=== PATIENT | female | born 1970 | race Caucasian/White ===

== ENCOUNTER 2019-01-07 10:34 | Emergency (ER) | payer OTHER ==
[2019-01-07 10:39] VITALS: BP 147/75; PULSE 78; TEMP 98.1; BMI 23.8
[2019-01-07] MEDS ORDERED: IBUPROFEN 600 MG TABLET (FP) PO ONE ×2 (11:55→12:27)
--- NOTE | 2019-01-07 12:23 | PDOC ---
History of Present Illness - General History Source: Patient Exam Limitations: No Limitations <Irais Han - Last Filed: 01/07/19 12:16> <Sophie Nevarez - Last Filed: 01/08/19 07:17> - General Chief Complaint: Pain Stated Complaint: PAIN Time Seen by Provider: 01/07/19 10:59 Past History - Suicide/Smoking/Psychosocial Hx Smoking History: Never smoked Hx Alcohol Use: No Drug/Substance Use Hx: No <Irais Han - Last Filed: 01/07/19 12:16> <Sophie Nevarez - Last Filed: 01/08/19 07:17> - Past Medical History Allergies/Adverse Reactions: Allergies Allergy/AdvReac Type Severity Reaction Status Date / Time No Known Allergies Allergy Verified 01/07/19 10:40 *Physical Exam - Vital Signs Last Vital Signs Temp Pulse Resp BP Pulse Ox 98.1 F 78 18 147/75 99 01/07/19 10:35 01/07/19 10:35 01/07/19 10:35 01/07/19 10:35 01/07/19 10:35 - Physical Exam General Appearance: No: Nourished Respiratory/Chest: positive: Lungs Clear, Normal Breath Sounds, Other (no masses or lumps palpable along R breast, no nipple inversion, no nipple discharge, no swelling or redness of breast). negative: Respiratory Distress Cardiovascular: positive: Regular Rhythm, Regular Rate, S1, S2. negative: Murmur Gastrointestinal/Abdominal: positive: Normal Bowel Sounds, Soft. negative: Tender, Distended, Guarding, Rebound Integumentary: positive: Normal Color Neurologic: positive: Alert, Normal Mood/Affect <Irais Han - Last Filed: 01/07/19 12:16> - Vital Signs Last Vital Signs Temp Pulse Resp BP Pulse Ox 98.1 F 78 18 147/75 99 01/07/19 10:35 01/07/19 10:35 01/07/19 10:35 01/07/19 10:35 01/07/19 10:35 <Sophie Nevarez - Last Filed: 01/08/19 07:17> ED Treatment Course - Medications Given in the ED: ED Medications Discontinued Medications Generic Name Dose Route Start Last Admin Trade Name Freq PRN Reason Stop Dose Admin Ibuprofen 600 mg 04/27/19 11:55 01/07/19 12:31 Motrin - PO 01/07/19 11:56 600 mg ONCE ONE Administration <Sophie Nevarez - Last Filed: 01/08/19 07:17> Medical Decision Making - Medical Decision Making 48 y/o F with no sig pmh presents with R breast pain from yesterday (along LOQ) . Denies fever, sob, cp, abd pain, n/v, nipple discharge, breast swelling, changes in color of breast. Had mammogram and ultrasound of breast last year which was normal. LNMP was 12/09. Is due for next menstrual cycle soon. Did not take anything for pain at home PE unremarkable with no concern for breast abscess, masses, or signs of breast cancer Could possibly be fibrocysts Given Motrin Stable for dc 01/07/19 12:17 <Irais Han - Last Filed: 01/07/19 12:16> *DC/Admit/Observation/Transfer - Discharge Dispostion Decision to Admit order: No <Irais Han - Last Filed: 01/07/19 12:16> - Attestations Physician Attestion: I reviewed the case with the mid-level practitioner and agree with the mid- level practitioner's assessment, diagnosis and disposition. <Sophie Nevarez - Last Filed: 01/08/19 07:17> Diagnosis at time of Disposition: Breast pain - Discharge Dispostion Disposition: HOME Condition at time of disposition: Stable - Patient Instructions Printed Discharge Instructions: DI for Breast Pain (Mastalgia) Additional Instructions: Thank you for choosing [facility]. It was a pleasure taking care of you. Likely your pain could be from fibrocysts in your breast. The pain usually resolves once your menstrual cycle starts Recommend follow-up with your medical office administrator. You may take Motrin 600 mg every 6 hours by mouth as needed for mild to moderate pain. Take Motrin with food. Return to the Emergency Department if your symptoms worsen or persist, you have fever, redness, swelling, nipple discharge, chest pain, shortness of breath or other concerning symptoms. Liat por elegir el [facility]. Fue un placer cuidar de ti. Probablemente azevedo dolor podra deberse a fibrocistos en azevedo seno. El dolor generalmente se resuelve osvaldo vez que comienza azevedo ciclo menstrual. Recomendar el seguimiento con azevedo gineclogo. Puede jose Motrin 600 mg cada 6 horas por va oral segn sea necesario para el dolor leve a moderado. [place] Motrin con la comida. Regrese al Departamento de Emergencias si javi sntomas empeoran o persisten, tiene fiebre, enrojecimiento, hinchazn, secrecin del pezn, dolor en el pecho , dificultad para respirar u otros sntomas relacionados. Print Language: [id number]
== END 2019-01-07 12:38 | disposition home or self-care (01) ==
LOC: JER 10:34
DX: N64.4 Mastodynia (principal)
CPT/HCPCS: 99281-25